=== PATIENT | male | born 1990 | race Caucasian/White ===

== ENCOUNTER 2018-09-24 19:03 | Emergency (ER) | payer MEDICAID, OTHER ==
[~2018-09-24] VITALS: Ht 180.3 cm; Wt 74.4 kg
[~2018-09-24 19:03] MED LIST: FAMO-1 PO; NO HOME MEDS; ONDA4TAB9 PO
[2018-09-24 19:13] VITALS: BP 121/85
[2018-09-24] MEDS ORDERED: LIDOcaine 1% 30ml preserv. free vial IJ ONE (19:40)
[2018-09-24] MEDS ORDERED: amox tr/potassium clavulanate 875/125mg TAB PO ONE (19:40)
[2018-09-24] MEDS ORDERED: AMOX-422 PO (21:27)
--- NOTE | 2018-09-24 21:30 | NUR ---
I&D DONE BY DR FERREIRA TO RT INDEX FINGER, DRESSED WITH GUAZE
== END 2018-09-24 21:54 | disposition home or self-care (01) ==
LOC: ER 19:03
DX: S61.250A Open bite of right index finger without damage to nail, initial encounter (principal); L02.511 Cutaneous abscess of right hand; L08.9 Local infection of the skin and subcutaneous tissue, unspecified; F12.90 Cannabis use, unspecified, uncomplicated; F17.200 Nicotine dependence, unspecified, uncomplicated; Z79.2 Long term (current) use of antibiotics; Z79.899 Other long term (current) drug therapy; W54.0XXA Bitten by dog, initial encounter; Y93.89 Activity, other specified; Y92.89 Other specified places as the place of occurrence of the external cause; Y99.8 Other external cause status
CPT/HCPCS: 26010; 99283; J2001; 10060

== ENCOUNTER 2020-09-16 00:15 | Inpatient (IN) | payer MEDICAID ==
[~2020-09-16] VITALS: Ht 180.3 cm; Wt 75.0 kg
[2020-09-16 01:13] LABS: BASOPHILS % (AUTO) 0.1 % (0-1); EOSINOPHILS % (AUTO) 0 % (0-6); HEMATOCRIT 51.5 % (42.0-52.0); HEMOGLOBIN 17.1 g/dl (14.0-17.9); LYMPHOCYTES # (AUTO) 1.5 X10'3 (1.1-4.8); LYMPHOCYTES % (AUTO) 6.9 % (21-51); MEAN CORPUSCULAR HEMOGLOBIN 30.2 PG (27.0-31.0); MEAN CORPUSCULAR HGB CONC 33.2 g/dL (33.0-36.5); MEAN PLATELET VOLUME 8.1 FL (7.4-10.4); MONOCYTES # (AUTO) 2.2 X10'3 (0-0.9); MONOCYTES % (AUTO) 10.3 % (2-12); NEUTROPHILS # (AUTO) 17.9 X10'3 (1.8-7.7); NEUTROPHILS % (AUTO) 82.7 % (42-75); PLATELET COUNT 423 X10'3 (140-440); RED BLOOD COUNT 5.66 X10'6 (4.70-6.10); RED CELL DISTRIBUTION WIDTH 13.3 % (11.5-14.5); WHITE BLOOD COUNT 21.6 X10'3 (4.5-11.0)
[2020-09-16] MEDS ORDERED: normal saline 1000ML IV soln IVB ONE ×2 (01:30→06:30)
[2020-09-16] MEDS ORDERED: famotidine/PF 10 mg/ml inj IV ONE (01:30)
[2020-09-16] MEDS ORDERED: ondansetron/PF 4mg/2ml inj IV ONE (01:30)
[2020-09-16] MEDS ORDERED: pantoprazole 40 MG vial IV ONE (01:30)
[2020-09-16 01:36] LABS: ALANINE AMINOTRANSFERASE 46 U/L (12-78); ALBUMIN 5.8 G/DL (3.4-5.0); ALBUMIN/GLOBULIN RATIO 1.3 (1.1-1.5); ALKALINE PHOSPHATASE 76 IU/L (46-116); ANION GAP 18 (8-16); ASPARTATE AMINO TRANSFERASE 32 U/L (10-37); BILIRUBIN,TOTAL 0.9 MG/DL (0.1-1.0); BLOOD UREA NITROGEN 29 MG/DL (7-18); BUN/CREATININE RATIO 14.6 (5.4-32.0); CALCIUM 10.2 MG/DL (8.5-10.1); CHLORIDE 96 MMOL/L (99-107); CREATININE 1.98 MG/DL (0.60-1.10); GLUCOSE 199 MG/DL (70-104); LIPASE < 50 U/L (73-393); POTASSIUM 3.9 MMOL/L (3.5-5.1); SODIUM 137 MMOL/L (135-145); TOTAL CARBON DIOXIDE 23.3 MMOL/L (24-32); TOTAL PROTEIN 10.3 G/DL (6.4-8.2); eGFR 40 ML/MIN
[2020-09-16] MEDS ORDERED: normal saline 1000ML IV soln IV ONE (01:45)
[2020-09-16] MEDS: morphine 4 MG/ML inj SYRINge IV PRN ×2 (02:11→06:27)
[2020-09-16] MEDS ORDERED: metoclopramide 5 mg/ml inj IV ONE (02:30)
[2020-09-16] MEDS ORDERED: haloperidol lactate 5mg/ml inj IM ONE (02:30)
[2020-09-16] MEDS ORDERED: NO HOME MEDS (02:58)
--- NOTE | 2020-09-16 03:01 | NUR ---
PT TO CT VIA WHEELCHAIR
--- NOTE | 2020-09-16 03:45 | NUR ---
PT PLACED ON HOSPITAL BED.
[2020-09-16 05:34] LABS: URINE AMPHETAMINE SCREEN NEGATIVE (Neg); URINE BARBITUATE SCREEN NEGATIVE (Neg); URINE BENZODIAZEPINES SCREEN NEGATIVE (Neg); URINE CANNABINOID SCREEN POSITIVE (Neg); URINE COCAINE SCREEN NEGATIVE (Neg); URINE METHADONE SCREEN NEGATIVE (Neg); URINE OPIATE SCREEN POSITIVE (Neg); URINE PHENCYCLIDINE SCREEN NEGATIVE (Neg)
[2020-09-16 05:44] LABS: CLARITY,URINE CLEAR (Clear); COLOR,URINE YELLOW (Yellow); GLUCOSE, URINE 100 mg/dl (Neg); KETONES,URINE NEGATIVE (Neg); LEUKOCYTE ESTERASE ,URINE NEGATIVE (Neg); NITRITES, URINE NEGATIVE (Neg); OCCULT BLOOD,URINE NEGATIVE (Neg); PH,URINE 5.5 (4.8-8.0); PROTEIN,URINE 100 mg/dl (Neg); UROBILINOGEN,URINE 0.2 E.U/dL (0.2-1.0)
[2020-09-16 05:49] LABS: UA COLLECTION TYPE URINAL
[2020-09-16 05:51] LABS: RBC,URINE NONE SEEN /HPF (0-2); WBC,URINE 0-4 /HPF (0-4)
[2020-09-16 05:52] LABS: BACTERIA,URINE NONE SEEN /HPF (Neg); HYALINE CASTS >30 /LPF (NEGATIVE); MUCUS STRANDS MODERATE /LPF (Neg); SQUAMOUS EPITHELIAL CELL,UR FEW /LPF (FEW)
[2020-09-16 08:06] LABS: BASOPHILS % (AUTO) 0.1 % (0-1); EOSINOPHILS % (AUTO) 0 % (0-6); HEMATOCRIT 41.3 % (42.0-52.0); HEMOGLOBIN 13.8 g/dl (14.0-17.9); LYMPHOCYTES # (AUTO) 0.8 X10'3 (1.1-4.8); LYMPHOCYTES % (AUTO) 5.5 % (21-51); MEAN CORPUSCULAR HEMOGLOBIN 30.5 PG (27.0-31.0); MEAN CORPUSCULAR HGB CONC 33.5 g/dL (33.0-36.5); MEAN PLATELET VOLUME 8.4 FL (7.4-10.4); MONOCYTES # (AUTO) 0.7 X10'3 (0-0.9); MONOCYTES % (AUTO) 4.7 % (2-12); NEUTROPHILS # (AUTO) 13.3 X10'3 (1.8-7.7); NEUTROPHILS % (AUTO) 89.7 % (42-75); PLATELET COUNT 310 X10'3 (140-440); RED BLOOD COUNT 4.54 X10'6 (4.70-6.10); RED CELL DISTRIBUTION WIDTH 13.3 % (11.5-14.5); WHITE BLOOD COUNT 14.8 X10'3 (4.5-11.0)
[2020-09-16 08:22] LABS: ALBUMIN 3.8 G/DL (3.4-5.0); ALBUMIN/GLOBULIN RATIO 1.1 (1.1-1.5); ALKALINE PHOSPHATASE 54 IU/L (46-116); ANION GAP 15 (8-16); ASPARTATE AMINO TRANSFERASE 28 U/L (10-37); BILIRUBIN,TOTAL 0.4 MG/DL (0.1-1.0); BLOOD UREA NITROGEN 24 MG/DL (7-18); BUN/CREATININE RATIO 21.1 (5.4-32.0); CALCIUM 7.8 MG/DL (8.5-10.1); CHLORIDE 102 MMOL/L (99-107); CREATININE 1.14 MG/DL (0.60-1.10); GLUCOSE 160 MG/DL (70-104); POTASSIUM 3.7 MMOL/L (3.5-5.1); SODIUM 139 MMOL/L (135-145); TOTAL CARBON DIOXIDE 22.3 MMOL/L (24-32); TOTAL PROTEIN 7.2 G/DL (6.4-8.2); eGFR 76 ML/MIN
[2020-09-16 08:30] LABS: HEMOGLOBIN A1C 5.2 % (4.5-6.2)
[2020-09-16 08:36] LABS: ALANINE AMINOTRANSFERASE 35 U/L (12-78)
[2020-09-16] MEDS ORDERED: magnesium 2GM in 50ml NS 50 ML IV PRN (08:50)
[2020-09-16] MEDS ORDERED: magnesium 4gm in 100ml NS 100 ML IV PRN (08:50)
[2020-09-16] MEDS ORDERED: potassium Cl 40MEQ/1/2NS 520ml 520 ML IV PRN ×2 (08:50)
[2020-09-16] MEDS ORDERED: magnesium Cl slow-release 64mg tablet PO PRN (08:50)
[2020-09-16] MEDS ORDERED: potassium Cl 20 mEq SR tablet PO PRN ×2 (08:50)
[2020-09-16] MEDS ORDERED: acetaminophen 325mg tablet PO PRN (08:50)
[2020-09-16] MEDS: normal saline 1000ml 1,000 ML IV SCH ×2 (09:54→19:37)
[2020-09-16] MEDS: ciprofloxacin lact 400MG/200ML 200 ML IV SCH ×2 (15:31→23:00)
[2020-09-16] MEDS: K and/or MAG REPLACEMENT MC SCH (20:00)
--- NOTE | 2020-09-16 21:24 | NUR ---
Pt lying in bed with no complaints voiced or reported. Fluids continuing to infuse. IV patent
[2020-09-17] MEDS: normal saline 1000ml 1,000 ML IV SCH ×2 (05:09→14:50)
[2020-09-17] MEDS: K and/or MAG REPLACEMENT MC SCH ×2 (08:00→20:00)
[2020-09-17] MEDS: ondansetron/PF 4mg/2ml inj IV PRN ×2 (08:50→21:01)
[2020-09-17] MEDS: ciprofloxacin lact 400MG/200ML 200 ML IV SCH ×2 (08:50→20:57)
[2020-09-17 09:26] LABS: BASOPHILS % (AUTO) 0.3 % (0-1); EOSINOPHILS # (AUTO) 0.1 X10'3 (0-0.9); EOSINOPHILS % (AUTO) 0.8 % (0-6); HEMATOCRIT 42.9 % (42.0-52.0); HEMOGLOBIN 14.3 g/dl (14.0-17.9); LYMPHOCYTES # (AUTO) 2.3 X10'3 (1.1-4.8); LYMPHOCYTES % (AUTO) 23.4 % (21-51); MEAN CORPUSCULAR HEMOGLOBIN 30.7 PG (27.0-31.0); MEAN CORPUSCULAR HGB CONC 33.3 g/dL (33.0-36.5); MEAN CORPUSCULAR VOLUME 92.1 FL (78-98); MEAN PLATELET VOLUME 8.2 FL (7.4-10.4); MONOCYTES # (AUTO) 0.7 X10'3 (0-0.9); MONOCYTES % (AUTO) 7.5 % (2-12); NEUTROPHILS # (AUTO) 6.6 X10'3 (1.8-7.7); PLATELET COUNT 287 X10'3 (140-440); RED BLOOD COUNT 4.66 X10'6 (4.70-6.10); RED CELL DISTRIBUTION WIDTH 13.4 % (11.5-14.5); WHITE BLOOD COUNT 9.7 X10'3 (4.5-11.0)
[2020-09-17] MEDS ORDERED: ondansetron/PF 4mg/2ml inj IV ONE (09:30)
[2020-09-17] MEDS ORDERED: LORazepam 2 mg/ml vial IV ONE (09:30)
[2020-09-17] MEDS ORDERED: ketorolac trometh. 30mg/ml inj. IV ONE (09:30)
--- NOTE | 2020-09-17 09:32 | NUR ---
Discussed pt's N/V, abdo burning sensation and anxiety w/ Dr Vu. New orders for Protonix 40mg iv BID; Zofran 4mg IV, Ativan 0.5mg IV, and Toradol 15 mg IV all now & once. Primary RN Shashi to be informed upon return from break.
[2020-09-17 09:35] LABS: ALBUMIN 3.9 G/DL (3.4-5.0); ANION GAP 11 (8-16); BLOOD UREA NITROGEN 17 MG/DL (7-18); BUN/CREATININE RATIO 20.2 (5.4-32.0); CALCIUM 8.7 MG/DL (8.5-10.1); CHLORIDE 104 MMOL/L (99-107); CREATININE 0.84 MG/DL (0.60-1.10); GLUCOSE 96 MG/DL (70-104); POTASSIUM 4.1 MMOL/L (3.5-5.1); SODIUM 141 MMOL/L (135-145); TOTAL CARBON DIOXIDE 25.7 MMOL/L (24-32); eGFR > 90 ML/MIN
[2020-09-17] MEDS ORDERED: ketorolac tromethamine 15mg/ml inj. IV ONE (09:35)
[2020-09-17] MEDS: pantoprazole 40 MG vial IV SCH ×2 (10:53→20:57)
[2020-09-17 11:39] VITALS: BP 134/77
--- NOTE | 2020-09-17 11:50 | NUR ---
PAGER ID: [phone] MESSAGE: Anjali [phone] - re [id number] Sumit all pain meds were DC'd except tylenol. Pt is reporting 8/10 abd pain. Can we get him something for that?
--- NOTE | 2020-09-17 15:04 | NUR ---
PAGER ID: [phone] MESSAGE: Anjali [phone] - re [id number] Sumit he is still reporting abd 9/10 pain. Can we get him something other than tylenol?
[2020-09-17] MEDS: metroNIDAZOLE-Flagyl 500mg/NS 100 ML IV SCH ×2 (15:58→23:48)
[2020-09-17 18:00] VITALS: BP 120/64
--- NOTE | 2020-09-17 19:05 | NUR ---
Patient in room [facility] 4021. I have received report from Bravo CROWELL and had the opportunity to ask questions and assume patient care. Addendum: 09/17/20 at 1905 by Leti Estrada RN Received report at [id number]
[2020-09-17] MEDS: lactobacillus rhamnosus 10,000 MMU CELLS/CAPSULE PO SCH (20:57)
[2020-09-17 22:00] VITALS: BP 140/90
[2020-09-17] MEDS ORDERED: ondansetron/PF 4mg/2ml inj IV PRN (23:11)
[2020-09-17] MEDS ORDERED: proCHLORperazine 10 MG/2 ml inj IV PRN (23:15)
[2020-09-17] MEDS ORDERED: morphine 2 MG/ML inj. syringe IV PRN (23:15)
[2020-09-18] MEDS: normal saline 1000ml 1,000 ML IV SCH ×2 (00:50→10:50)
--- NOTE | 2020-09-18 06:10 | NUR ---
Problems reprioritized. Patient report given, questions answered & plan of care reviewed with Anjali CROWELL.
[2020-09-18 06:24] VITALS: BP 131/75
[2020-09-18 06:48] LABS: BASOPHILS % (AUTO) 0.5 % (0-1); EOSINOPHILS # (AUTO) 0.1 X10'3 (0-0.9); EOSINOPHILS % (AUTO) 1.5 % (0-6); HEMATOCRIT 39.9 % (42.0-52.0); HEMOGLOBIN 13.3 g/dl (14.0-17.9); LYMPHOCYTES # (AUTO) 2.5 X10'3 (1.1-4.8); LYMPHOCYTES % (AUTO) 26.7 % (21-51); MEAN CORPUSCULAR HEMOGLOBIN 30.2 PG (27.0-31.0); MEAN CORPUSCULAR HGB CONC 33.4 g/dL (33.0-36.5); MEAN CORPUSCULAR VOLUME 90.5 FL (78-98); MONOCYTES # (AUTO) 0.8 X10'3 (0-0.9); MONOCYTES % (AUTO) 9.2 % (2-12); NEUTROPHILS # (AUTO) 5.7 X10'3 (1.8-7.7); NEUTROPHILS % (AUTO) 62.1 % (42-75); PLATELET COUNT 263 X10'3 (140-440); RED BLOOD COUNT 4.41 X10'6 (4.70-6.10); RED CELL DISTRIBUTION WIDTH 12.7 % (11.5-14.5); WHITE BLOOD COUNT 9.2 X10'3 (4.5-11.0)
[2020-09-18 06:54] LABS: ALBUMIN 3.4 G/DL (3.4-5.0); ANION GAP 7 (8-16); BLOOD UREA NITROGEN 15 MG/DL (7-18); BUN/CREATININE RATIO 16.9 (5.4-32.0); CALCIUM 8.3 MG/DL (8.5-10.1); CHLORIDE 109 MMOL/L (99-107); CREATININE 0.89 MG/DL (0.60-1.10); GLUCOSE 87 MG/DL (70-104); MAGNESIUM 1.9 MG/DL (1.5-2.4); POTASSIUM 4.3 MMOL/L (3.5-5.1); SODIUM 142 MMOL/L (135-145); TOTAL CARBON DIOXIDE 25.8 MMOL/L (24-32); eGFR > 90 ML/MIN
[2020-09-18] MEDS: lactobacillus rhamnosus 10,000 MMU CELLS/CAPSULE PO SCH (07:03)
[2020-09-18] MEDS: pantoprazole 40 MG vial IV SCH (07:03)
[2020-09-18] MEDS: ciprofloxacin lact 400MG/200ML 200 ML IV SCH (07:03)
[2020-09-18] MEDS: metroNIDAZOLE-Flagyl 500mg/NS 100 ML IV SCH (07:03)
[2020-09-18] MEDS: K and/or MAG REPLACEMENT MC SCH (08:00)
[2020-09-18 10:00] VITALS: BP 120/76
== END 2020-09-18 12:00 | disposition home or self-care (01) | DRG 720 ==
LOC: ER 00:15 → ED HOLD 08:48 → ORTHO 4S 09-17 11:25
PROVIDERS: ADMIT Internal Medicine; ATTEND Internal Medicine
DX: A41.9 Sepsis, unspecified organism (principal); E87.2 Acidosis; N17.9 Acute kidney failure, unspecified; F12.90 Cannabis use, unspecified, uncomplicated; K29.20 Alcoholic gastritis without bleeding; F17.210 Nicotine dependence, cigarettes, uncomplicated; N30.90 Cystitis, unspecified without hematuria; E86.0 Dehydration; R73.9 Hyperglycemia, unspecified
CPT/HCPCS: 36415; 74176; 80048; 80053; 80305; 81001; 83036; 83605; 83690; 83735; 84145; 85025; 87040; 87081; 96361; 96372; 96375; 96376; 99285; C9113; G0378; J0744; J1630; J1885; J2060; J2270; J2405; J2765; J3490; J7030

== ENCOUNTER 2022-03-28 09:20 | Emergency (ER) | payer MEDICAID ==
[~2022-03-28] VITALS: Ht 180.3 cm; Wt 61.4 kg
[~2022-03-28 09:20] MED LIST changes: -FAMO-1 PO; -ONDA4TAB9 PO
[2022-03-28] MEDS ORDERED: normal saline 1000ML IV soln IVB ONE (09:30)
[2022-03-28] MEDS ORDERED: famotidine/PF 10 mg/ml inj IV ONE (09:30)
[2022-03-28] MEDS ORDERED: ondansetron/PF 4mg/2ml inj IV ONE (09:44)
[2022-03-28 09:47] LABS: BASOPHILS % (AUTO) 0.3 % (0-1); EOSINOPHILS % (AUTO) 0.2 % (0-6); HEMATOCRIT 49.3 % (42.0-52.0); HEMOGLOBIN 17.1 g/dl (14.0-17.9); LYMPHOCYTES # (AUTO) 1.8 X10'3 (1.1-4.8); MEAN CORPUSCULAR HEMOGLOBIN 30.1 PG (27.0-31.0); MEAN CORPUSCULAR HGB CONC 34.6 g/dL (33.0-36.5); MEAN CORPUSCULAR VOLUME 86.9 FL (78-98); MEAN PLATELET VOLUME 7.8 FL (7.4-10.4); MONOCYTES # (AUTO) 1.7 X10'3 (0-0.9); MONOCYTES % (AUTO) 12.6 % (2-12); NEUTROPHILS # (AUTO) 9.6 X10'3 (1.8-7.7); NEUTROPHILS % (AUTO) 72.9 % (42-75); PLATELET COUNT 412 X10'3 (140-440); RED BLOOD COUNT 5.67 X10'6 (4.70-6.10); RED CELL DISTRIBUTION WIDTH 12.9 % (11.5-14.5); WHITE BLOOD COUNT 13.2 X10'3 (4.5-11.0)
[2022-03-28 09:56] LABS: ALANINE AMINOTRANSFERASE 52 U/L (12-78); ALBUMIN 5.4 G/DL (3.4-5.0); ALBUMIN/GLOBULIN RATIO 1.2 (1.1-1.5); ALKALINE PHOSPHATASE 72 IU/L (46-116); ANION GAP 8 (8-16); ASPARTATE AMINO TRANSFERASE 32 U/L (10-37); BILIRUBIN,TOTAL 1.1 MG/DL (0.1-1.0); BLOOD UREA NITROGEN 43 MG/DL (7-18); BUN/CREATININE RATIO 24.4 (5.4-32.0); CHLORIDE 84 MMOL/L (99-107); CREATININE 1.76 MG/DL (0.60-1.10); GLUCOSE 147 MG/DL (70-104); LIPASE 171 U/L (73-393); POTASSIUM 4.5 MMOL/L (3.5-5.1); SODIUM 121 MMOL/L (135-145); TOTAL PROTEIN 9.9 G/DL (6.4-8.2); eGFR 45 ML/MIN
[2022-03-28] MEDS ORDERED: dicyclomine 10 MG capsule PO ONE (10:15)
[2022-03-28] MEDS ORDERED: PROC25SU31 RC (10:25)
[2022-03-28] MEDS ORDERED: ONDA4TAB12 PO (10:25)
[2022-03-28] MEDS ORDERED: DICY10CA88 PO (10:25)
[2022-03-28] MEDS ORDERED: PANT-47 PO (10:26)
[2022-03-28] MEDS: morphine 4 MG/ML inj SYRINge IV PRN ×2 (10:34→11:21)
[2022-03-28 11:41] VITALS: BP 147/88
== END 2022-03-28 11:51 | disposition home or self-care (01) ==
LOC: ER 09:20
DX: N17.9 Acute kidney failure, unspecified (principal); R11.2 Nausea with vomiting, unspecified; R10.13 Epigastric pain; E86.0 Dehydration; F12.90 Cannabis use, unspecified, uncomplicated
CPT/HCPCS: 36415; 80053; 83690; 85025; 96361; 96374; 96375; 96376; 99284; J2270; J2405; J3490; J7030

== ENCOUNTER 2024-04-02 06:17 | Inpatient (IN) | payer MEDICAID ==
[~2024-04-02] VITALS: Ht 180.3 cm; Wt 64.5 kg
[2024-04-02] MEDS: normal saline 1000ml 1,000 ML IV SCH (01:45)
[~2024-04-02 06:17] MED LIST changes: +DICY10CA88 PO; +ONDA-243 PO; +PANT-47 PO
[2024-04-02 06:53] LABS: BILIRUBIN,URINE NEGATIVE (Neg); CLARITY,URINE SLIGHTLY CLOUDY (Clear); COLOR,URINE YELLOW (Yellow); GLUCOSE, URINE NEGATIVE (Neg); KETONES,URINE TRACE mg/dl (Neg); LEUKOCYTE ESTERASE ,URINE NEGATIVE (Neg); NITRITES, URINE NEGATIVE (Neg); OCCULT BLOOD,URINE NEGATIVE (Neg); PROTEIN,URINE >=300 mg/dl (Neg); UROBILINOGEN,URINE 0.2 E.U/dL (0.2-1.0)
[2024-04-02 07:08] LABS: UA COLLECTION TYPE CLN CATCH MIDSTREAM
[2024-04-02 07:09] LABS: RBC,URINE NONE SEEN /HPF (0-2)
[2024-04-02 07:10] LABS: AMORPHOUS URATES 2+
[2024-04-02 07:11] LABS: BACTERIA,URINE 1+ /HPF (Neg); SQUAMOUS EPITHELIAL CELL,UR FEW /LPF (FEW)
[2024-04-02 07:12] LABS: FINE GRANULAR CAST 0-3 /LPF (NEGATIVE); MUCUS STRANDS NONE SEEN /LPF (Neg); URIC ACID CRYSTALS 1+ /HPF (NEGATIVE)
[2024-04-02] MEDS: diphenhydrAMINE 50 mg/ml inj IV ONE (07:20)
[2024-04-02] MEDS: metoclopramide 5 mg/ml inj IV ONE (07:20)
[2024-04-02] MEDS: normal saline 1000ML IV soln IVB ONE (07:21)
[2024-04-02 07:58] LABS: BASOPHILS % (AUTO) 0.1 % (0-1); EOSINOPHILS % (AUTO) 0 % (0-6); HEMATOCRIT 51.2 % (42.0-52.0); LYMPHOCYTES % (AUTO) 9.2 % (21-51); MEAN CORPUSCULAR HEMOGLOBIN 30.8 PG (27.0-31.0); MEAN CORPUSCULAR HGB CONC 35.2 g/dL (33.0-36.5); MEAN CORPUSCULAR VOLUME 87.5 FL (78-98); MEAN PLATELET VOLUME 8.6 FL (7.4-10.4); MONOCYTES # (AUTO) 2.3 X10'3 (0-0.9); MONOCYTES % (AUTO) 10.4 % (2-12); NEUTROPHILS # (AUTO) 17.7 X10'3 (1.8-7.7); NEUTROPHILS % (AUTO) 80.3 % (42-75); PLATELET COUNT 465 X10'3 (140-440); RED BLOOD COUNT 5.85 X10'6 (4.70-6.10); RED CELL DISTRIBUTION WIDTH 13.6 % (11.5-14.5); WHITE BLOOD COUNT 22.1 X10'3 (4.5-11.0)
[2024-04-02 08:03] LABS: ALANINE AMINOTRANSFERASE 53 U/L (12-78); ALBUMIN 5.7 G/DL (3.4-5.0); ALBUMIN/GLOBULIN RATIO 1.1 (1.1-1.5); ALKALINE PHOSPHATASE 82 IU/L (46-116); AMYLASE 158 U/L (25-115); ANION GAP 20 (8-16); ASPARTATE AMINO TRANSFERASE 44 U/L (10-37); BILIRUBIN,TOTAL 0.9 MG/DL (0.1-1.0); BLOOD UREA NITROGEN 46 MG/DL (7-18); BUN/CREATININE RATIO 8.5 (10.0-20.0); CALCIUM 9.9 MG/DL (8.5-10.1); CHLORIDE 79 MMOL/L (99-107); CREATININE 5.44 MG/DL (0.60-1.10); GLUCOSE 131 MG/DL (70-104); LIPASE 156 U/L (16-77); POTASSIUM 3.8 MMOL/L (3.5-5.1); SODIUM 123 MMOL/L (135-145); TOTAL CARBON DIOXIDE 24.4 MMOL/L (24-32); TOTAL PROTEIN 10.8 G/DL (6.4-8.2); eCRCL 18 ML/MIN; eGFR 12 ML/MIN
[2024-04-02] MEDS ORDERED: mag hydrox/Alum hydrox/simeth 30ml oral suspension PO PRN (11:50)
[2024-04-02] MEDS ORDERED: magnesium sulf-water 2g/50mL 50 ML IV PRN (11:50)
[2024-04-02] MEDS ORDERED: acetaminophen 325mg tablet PO PRN ×2 (11:50)
[2024-04-02] MEDS ORDERED: potassium Cl 40MEQ/1/2NS 520ml 520 ML IV PRN (11:50)
[2024-04-02] MEDS ORDERED: potassium Cl 20 mEq SR tablet PO PRN ×2 (11:50)
[2024-04-02] MEDS ORDERED: HYDROcodone/acetaminophen 5mg/325mg tablet PO PRN (11:50)
[2024-04-02] MEDS ORDERED: magnesium hydroxide 30ml (MOM) UD suspension PO PRN (11:50)
[2024-04-02] MEDS ORDERED: CAPSAICIN HP (0.1%) cream TP PRN (11:50)
[2024-04-02] MEDS ORDERED: magnesium sulf-water 4G/100mL 100 ML IV PRN (11:50)
[2024-04-02] MEDS: ondansetron/PF 4mg/2ml inj IV ONE (12:39)
[2024-04-02] MEDS: morphine 4 MG/ML inj SYRINge IV ONE (12:40)
[2024-04-02] MEDS: ringers solution, lacted 1,000 ML IV ONE (12:41)
[2024-04-02] MEDS ORDERED: CAPSAICIN HP (0.1%) cream TP SCH (13:00)
[2024-04-02] MEDS: CAPSAICIN HP (0.1%) cream TP SCH (14:07)
[2024-04-02 14:14] LABS: BASOPHILS % (AUTO) 0.1 % (0-1); EOSINOPHILS # (AUTO) 0.1 X10'3 (0-0.9); EOSINOPHILS % (AUTO) 0.4 % (0-6); HEMATOCRIT 48.5 % (42.0-52.0); HEMOGLOBIN 16.5 g/dl (14.0-17.9); LYMPHOCYTES # (AUTO) 2.2 X10'3 (1.1-4.8); LYMPHOCYTES % (AUTO) 13.1 % (21-51); MEAN CORPUSCULAR HEMOGLOBIN 30.7 PG (27.0-31.0); MEAN CORPUSCULAR HGB CONC 34.1 g/dL (33.0-36.5); MEAN CORPUSCULAR VOLUME 90.1 FL (78-98); MEAN PLATELET VOLUME 7.9 FL (7.4-10.4); MONOCYTES # (AUTO) 1.8 X10'3 (0-0.9); MONOCYTES % (AUTO) 10.8 % (2-12); NEUTROPHILS # (AUTO) 12.9 X10'3 (1.8-7.7); NEUTROPHILS % (AUTO) 75.6 % (42-75); PLATELET COUNT 330 X10'3 (140-440); RED BLOOD COUNT 5.39 X10'6 (4.70-6.10); RED CELL DISTRIBUTION WIDTH 13.4 % (11.5-14.5); WHITE BLOOD COUNT 17.1 X10'3 (4.5-11.0)
[2024-04-02 14:20] LABS: ALBUMIN 3.9 G/DL (3.4-5.0); ANION GAP 14 (8-16); BLOOD UREA NITROGEN 39 MG/DL (7-18); BUN/CREATININE RATIO 13.5 (10.0-20.0); CALCIUM 8.8 MG/DL (8.5-10.1); CHLORIDE 90 MMOL/L (99-107); CREATININE 2.88 MG/DL (0.60-1.10); GLUCOSE 101 MG/DL (70-104); POTASSIUM 3.6 MMOL/L (3.5-5.1); SODIUM 127 MMOL/L (135-145); TOTAL CARBON DIOXIDE 23.3 MMOL/L (24-32); eCRCL 33 ML/MIN; eGFR 25 ML/MIN
[2024-04-02] MEDS: ondansetron/PF 4mg/2ml inj IV PRN (15:01)
[2024-04-02 15:06] VITALS: BP 142/95; PULSE 74; RESP 10; O2SAT 100
[2024-04-02] MEDS: HYDROcodone/acetaminophen 10/325mg tab PO PRN (15:23)
[2024-04-02] MEDS ORDERED: proCHLORperazine 10 MG/2 ml inj ONE (16:42)
[2024-04-02] MEDS: proCHLORperazine 10 MG/2 ml inj IV PRN (16:48)
[2024-04-02 18:20] VITALS: BP 129/90; PULSE 75; RESP 16; TEMP 98.6; O2SAT 99
[2024-04-02 19:00] VITALS: BP 139/82; PULSE 84; RESP 15; TEMP 98.7; O2SAT 99
[2024-04-02] MEDS: K and/or MAG REPLACEMENT MC SCH (20:00)
[2024-04-02] MEDS: docusate sod 100mg capsule PO SCH (20:38)
[2024-04-02 22:00] VITALS: BP 127/81; PULSE 75; RESP 15; TEMP 97.1; O2SAT 97
[2024-04-03 06:00] VITALS: BP 115/79; PULSE 67; RESP 13; TEMP 97.9; O2SAT 98
[2024-04-03 06:52] LABS: BASOPHILS % (AUTO) 0.3 % (0-1); EOSINOPHILS # (AUTO) 0.1 X10'3 (0-0.9); HEMATOCRIT 44.1 % (42.0-52.0); LYMPHOCYTES # (AUTO) 2.1 X10'3 (1.1-4.8); LYMPHOCYTES % (AUTO) 16.7 % (21-51); MEAN CORPUSCULAR HEMOGLOBIN 30.3 PG (27.0-31.0); MEAN CORPUSCULAR HGB CONC 33.9 g/dL (33.0-36.5); MEAN CORPUSCULAR VOLUME 89.3 FL (78-98); MEAN PLATELET VOLUME 8.3 FL (7.4-10.4); MONOCYTES # (AUTO) 1.4 X10'3 (0-0.9); MONOCYTES % (AUTO) 11.2 % (2-12); NEUTROPHILS # (AUTO) 8.8 X10'3 (1.8-7.7); NEUTROPHILS % (AUTO) 70.8 % (42-75); PLATELET COUNT 301 X10'3 (140-440); RED BLOOD COUNT 4.94 X10'6 (4.70-6.10); RED CELL DISTRIBUTION WIDTH 13.4 % (11.5-14.5); WHITE BLOOD COUNT 12.4 X10'3 (4.5-11.0)
[2024-04-03 07:18] LABS: ALANINE AMINOTRANSFERASE 38 U/L (12-78); ALBUMIN 3.8 G/DL (3.4-5.0); ALBUMIN/GLOBULIN RATIO 1.1 (1.1-1.5); ALKALINE PHOSPHATASE 61 IU/L (46-116); ANION GAP 8 (8-16); ASPARTATE AMINO TRANSFERASE 27 U/L (10-37); BILIRUBIN,TOTAL 1.4 MG/DL (0.1-1.0); BLOOD UREA NITROGEN 25 MG/DL (7-18); BUN/CREATININE RATIO 25.3 (10.0-20.0); CALCIUM 8.8 MG/DL (8.5-10.1); CHLORIDE 97 MMOL/L (99-107); CREATININE 0.99 MG/DL (0.60-1.10); GLUCOSE 81 MG/DL (70-104); LIPASE 69 U/L (16-77); MAGNESIUM 2.6 MG/DL (1.5-2.4); POTASSIUM 3.5 MMOL/L (3.5-5.1); SODIUM 136 MMOL/L (135-145); TOTAL CARBON DIOXIDE 31.3 MMOL/L (24-32); TOTAL PROTEIN 7.4 G/DL (6.4-8.2); eCRCL 97 ML/MIN; eGFR 87 ML/MIN
[2024-04-03 08:15] VITALS: RESP 18; O2SAT 98
[2024-04-03 08:20] VITALS: RESP 16
[2024-04-03] MEDS: pantoprazole 40mg Tablet.DR PO SCH (09:23)
[2024-04-03 10:00] VITALS: BP 125/83; PULSE 65; RESP 16; TEMP 98.5; O2SAT 99
[2024-04-03] MEDS ORDERED: CAPS42.514 TP (12:44)
[2024-04-03] MEDS ORDERED: LACT1CAP26 PO (12:44)
[2024-04-03] MEDS ORDERED: CEFD300C3 PO (12:44)
[2024-04-03 12:46] VITALS: RESP 16
[2024-04-03] MEDS: CefTRIAXone/D5W-Rocephin 1gm 50 ML IV SCH (12:58)
[2024-04-03] MEDS: azithromycin 250mg tablet PO ONE (13:11)
[2024-04-03] MEDS ORDERED: NALT50TA5 PO (13:18)
== END 2024-04-03 15:05 | disposition home or self-care (01) | DRG 422 ==
LOC: ER 06:17 → ED HOLD 12:00 → ORTHO 4S 18:54
PROVIDERS: ADMIT Family Medicine; ATTEND Family Medicine
DX: E86.0 Dehydration (principal); N17.0 Acute kidney failure with tubular necrosis; K85.90 Acute pancreatitis without necrosis or infection, unspecified; E87.8 Other disorders of electrolyte and fluid balance, not elsewhere classified; E87.1 Hypo-osmolality and hyponatremia; Z79.899 Other long term (current) drug therapy
CPT/HCPCS: 36415; 80048; 80053; 81001; 82150; 83690; 83735; 85025; 87081; 87088; 99291; G0378; J0696; J0780; J1200; J2270; J2405; J2765; J7030; J7120